=== PATIENT | male | born 1960 | race Caucasian/White ===

== ENCOUNTER 2019-03-26 20:32 | Emergency (ER) | payer OTHER ==
[2019-03-26 21:27] LABS: Anion Gap 12 mmol/L (10-20); BUN (Urea Nitrogen) 11 mg/dL (8.4-25.7); Calc. Creatinine Clearance 0 mL/min (70-130); Calcium 9.6 mg/dL (7.8-10.44); Carbon Dioxide 25 mmol/L (22-29); Chloride 106 mmol/L (98-107); Estimated GFR-MDRD Greater than 90; Glucose 89 mg/dL (70-105); Potassium 3.9 mmol/L (3.5-5.1); Sodium 139 mmol/L (136-145)
--- NOTE | 2019-03-26 22:23 | MRI ---
MRI BRAIN WITH AND WITHOUT CONTRAST: 03/26/19 Multiplanar and multisequential imaging of brain obtained. INDICATIONS: Droopiness upper lip. Transfer from [place]. FINDINGS: Ventricles have normal size and position. Moderate chronic ischemic white matter changes are seen in both cerebral hemispheres. There is no evidence of restricted diffusion. There is no mass or edema. No abnormal enhancement iden tified. Intracranial internal carotid arteries and proximal cerebral arteries show flow voids. There are chronic ischemic changes seen in the brain stem at the level of the mitzy. IMPRESSION: Chronic ischemic changes are noted in the deep white matter of both cerebral hemispheres and brain st em. No acute process identified. POS: [facility]
== END 2019-03-26 22:36 | disposition home or self-care (01) ==
LOC: ERS 20:32
DX: G51.0 Bell's palsy (principal); F41.9 Anxiety disorder, unspecified; I10 Essential (primary) hypertension; F17.210 Nicotine dependence, cigarettes, uncomplicated; Z79.899 Other long term (current) drug therapy
CPT/HCPCS: 36415; 70553; 80048